=== PATIENT | male | born 1965 | race Caucasian/White ===

== ENCOUNTER → 2016-10-16 | Outpatient (CLI) | payer MEDICAID ==
--- NOTE | 2016-10-16 09:02 | CPEKG ---
Heart Rate: 57 RR Interval: 1053 P-R Interval: 152 QRSD Interval: 92 QT Interval: 420 QTC Interval: 409 P [place]: 66 QRS [place]: 63 T Wave [place]: 49 EKG Severity - NORMAL ECG - EKG Impression: SINUS RHYTHM Electronically Signed By: Dudley Bae 18-Oct-2016 12:27:52
== END ==
LOC: FCP 08:43
PROVIDERS: ATTEND Internal Medicine
DX: Z21 Asymptomatic human immunodeficiency virus [HIV] infection status (principal); Z72.0 Tobacco use; Z79.899 Other long term (current) drug therapy